=== PATIENT | female | born 1940 | race Caucasian/White ===

== ENCOUNTER 2016-03-24 11:16 | Emergency (ER) | payer OTHER ==
[~2016-03-24] VITALS: Ht 154.9 cm; Wt 72.7 kg
[~2016-03-24 11:16] MED LIST: ALENDRONATE SOD70 MG PO; ASCORBIC ACID500 M3 PO; CALTRATE 600600 MG PO; CENTRUM SILVER1 EAC3 PO; CHILDREN'S ASPI81 M1 PO; DONEPEZIL HCL10 MG PO; GLIMEPIRIDE1 MG PO; INDAPAMIDE1.25 MG PO; INDOCIN50 MG PO; KLOR-CON M1010 MEQ PO; LISINOPRIL10 MG PO; SIMVASTATIN40 MG PO
[2016-03-24] MEDS ORDERED: LORTAB 5-325 M1 EACH PO (15:18)
[2016-03-24 15:52] VITALS: BP 128/67
== END 2016-03-24 15:53 | disposition home or self-care (01) ==
LOC: EME 11:16
DX: S82.002A Unspecified fracture of left patella, initial encounter for closed fracture (principal); W01.0XXA Fall on same level from slipping, tripping and stumbling without subsequent striking against object, initial encounter; Z96.653 Presence of artificial knee joint, bilateral; Z88.0 Allergy status to penicillin
CPT/HCPCS: 73564; 93971; 99281; 99284

== ENCOUNTER 2016-04-07 07:43 | Emergency (ER) | payer OTHER ==
[~2016-04-07] VITALS: Ht 167.6 cm; Wt 65.8 kg
[~2016-04-07 07:43] MED LIST changes: +LORTAB 5-325 M1 EACH PO
[2016-04-07 08:45] LABS: HEMATOCRIT 31.4 % (36.0-46.0); MCH 27.7 PG (29.0-34.0); MCHC 32.2 G/DL (30.0-36.0); MEAN PLAT.VOLUME 8.9 uM^3 (9.5-12.4); PLATELET COUNT 635 K/uL (156-360); RBC DIS.WIDTH-CV 14.1 % (11.8-14.6); RED BLOOD COUNT 3.65 M/uL (3.80-5.20); WHITE BLOOD COUNT 8.6 K/uL (4.1-10.2)
[2016-04-07 08:56] LABS: CHLORIDE 103 mEq/L (99-109); POTASSIUM 3.6 mEq/L (3.7-5.4); SODIUM 139 mEq/L (136-147)
[2016-04-07 08:58] LABS: GLUCOSE 171 mg/dL (70-99)
[2016-04-07 08:59] LABS: ANION GAP 11 MEQ/L (2-14)
[2016-04-07 09:00] LABS: TOTAL BILIRUBIN 0.3 mg/dL (0.0-1.0)
[2016-04-07 09:02] LABS: ALKALINE PHOSPHATASE 81 IU/L (3-129); GFR ESTIMATE (CALCULATED) > 59 mL/min/
[2016-04-07 09:03] LABS: UREA NITROGEN (BUN) 6 mg/dL (9-23)
[2016-04-07 09:27] LABS: ADD MIUA? YES; BILIRUBIN NEGATIVE; BLOOD NEGATIVE; COLOR YELLOW ((YELLOW)); GLUCOSE (STRIP) NEGATIVE; KETONES 40; LEUKOCYTES TRACE; NITRITE NEGATIVE; PROTEIN (STRIP) TRACE; SPECIFIC GRAVITY 1.022 (1.000-1.030); UROBILINOGEN 0.2 MG/DL (0.2-1.0)
[2016-04-07 09:47] LABS: BACTERIA NONE SEEN; CASTS NONE SEEN /LPF; CRYSTALS PRESENT; EPITHELIAL CELLS RARE; MUCUS NONE SEEN; PATHOLOGICAL CAST NONE SEEN; RED BLOOD CELLS 0-5 /HPF (0-5); SMALL ROUND CELL NONE SEEN; UCUL ADDED? NO; YEAST-LIKE CELL NONE SEEN
[2016-04-07 10:14] LABS: AMORPHOUS URATES CRYSTALS 3+
[2016-04-07] MEDS ORDERED: OXAYDO5 MG PO (12:25)
[2016-04-07] MEDS ORDERED: CALTRATE PLUS1 EACH PO (12:27)
[2016-04-07] MEDS ORDERED: CIPRO500 MG PO (13:47)
[2016-04-07 14:36] VITALS: BP 117/65
== END 2016-04-07 14:36 | disposition home or self-care (01) ==
LOC: EME 07:43
PROVIDERS: Nurse Practitioner Family
DX: N39.0 Urinary tract infection, site not specified (principal); D64.9 Anemia, unspecified; F03.90 Unspecified dementia, unspecified severity, without behavioral disturbance, psychotic disturbance, mood disturbance, and anxiety; E11.9 Type 2 diabetes mellitus without complications; Z79.84 Long term (current) use of oral hypoglycemic drugs; Z79.4 Long term (current) use of insulin; E78.5 Hyperlipidemia, unspecified; I10 Essential (primary) hypertension; Z88.1 Allergy status to other antibiotic agents; Z88.0 Allergy status to penicillin; Z91.030 Bee allergy status
CPT/HCPCS: 70450; 74176; 80053; 81003; 85027; 99281; 99285; J0744; J7030

== ENCOUNTER 2016-04-15 15:46 | Inpatient (IN) | payer OTHER ==
[~2016-04-15] VITALS: Ht 154.9 cm; Wt 66.4 kg
[~2016-04-15 15:46] MED LIST changes: +CALTRATE PLUS1 EACH PO; +CIPRO500 MG PO; +OXAYDO5 MG PO
[2016-04-15 16:14] LABS: EOSINOPHIL (%) 1.7 % (0-5); EOSINOPHIL COUNT 0.2 K/uL (0-0.3); HEMATOCRIT 30.7 % (36.0-46.0); IMMATURE GRANULOCYTE (%) 0.6 % (0.0-0.7); IMMATURE GRANULOCYTE COUNT 0.7 K/uL; LYMPHOCYTE COUNT 1.7 K/uL (1.0-2.8); MCH 27.8 PG (29.0-34.0); MCHC 32.2 G/DL (30.0-36.0); MCV 86.2 FL (83-99); MEAN PLAT.VOLUME 9.5 uM^3 (9.5-12.4); MONOCYTE (%) 7.4 % (3-12); MONOCYTE COUNT 0.8 K/uL (0-0.8); NEUTROPHIL (%) 74.3 % (45-76); NEUTROPHIL COUNT 8.1 K/uL (1.8-6.4); PLATELET COUNT 467 K/uL (156-360); RBC DIS.WIDTH-CV 14.2 % (11.8-14.6); RBC DIS.WIDTH-SD 43.2 % (39-53); RED BLOOD COUNT 3.56 M/uL (3.80-5.20); WHITE BLOOD COUNT 10.9 K/uL (4.1-10.2)
[2016-04-15 16:32] LABS: INTER. NORMALIZED RATIO 1.2; PROTHROMBIN TIME 12.7 (9.2-11.2); PTT 23.3 (25-32)
[2016-04-15 16:34] LABS: CHLORIDE 102 mEq/L (99-109); POTASSIUM 3.4 mEq/L (3.7-5.4); SODIUM 139 mEq/L (136-147)
[2016-04-15 16:36] LABS: GLUCOSE 187 mg/dL (70-99)
[2016-04-15 16:37] LABS: ANION GAP 14 MEQ/L (2-14)
[2016-04-15 16:40] LABS: GFR ESTIMATE (CALCULATED) > 59 mL/min/; UREA NITROGEN (BUN) 7 mg/dL (9-23)
[2016-04-15] MEDS ORDERED: CHOLESTYRAMINE378 GM PO (16:41)
[2016-04-15] MEDS ORDERED: ASCORBIC ACID500 M3 PO (16:41)
[2016-04-15 19:33] LABS: HEMATOCRIT 26.7 % (36.0-46.0); MCH 28.3 PG (29.0-34.0); MCHC 32.6 G/DL (30.0-36.0); RBC DIS.WIDTH-CV 14.3 % (11.8-14.6); RBC DIS.WIDTH-SD 43.3 % (39-53); RED BLOOD COUNT 3.07 M/uL (3.80-5.20); WHITE BLOOD COUNT 13.9 K/uL (4.1-10.2)
[2016-04-15 20:33] LABS: ADD MIUA? YES; BILIRUBIN NEGATIVE; BLOOD NEGATIVE; GLUCOSE (STRIP) NEGATIVE; KETONES 15; LEUKOCYTES TRACE; NITRITE NEGATIVE; PROTEIN (STRIP) NEGATIVE; SPECIFIC GRAVITY 1.009 (1.000-1.030); UROBILINOGEN 0.2 MG/DL (0.2-1.0)
[2016-04-15 20:35] LABS: COLOR PALE YELLOW ((YELLOW))
[2016-04-15 21:05] LABS: MEAN PLAT.VOLUME 9.7 uM^3 (9.5-12.4); PLATELET COUNT 303 K/uL (156-360)
[2016-04-15 21:14] VITALS: BP 100/60
[2016-04-15 21:28] LABS: BACTERIA RARE; CASTS NONE SEEN /LPF; CRYSTALS NONE SEEN; EPITHELIAL CELLS 1+; MUCUS NONE SEEN; RED BLOOD CELLS 0-5 /HPF (0-5); UCUL ADDED? NO; WHITE BLOOD CELLS 0-5 /HPF (0-5)
[2016-04-15 21:34] VITALS: BP 112/52
[2016-04-15 23:00] VITALS: BP 114/60
[2016-04-16] VITALS (41 sets, daily range): BP systolic 79–138; BP diastolic 43–80
[2016-04-16 02:13] LABS: POINT-OF-CARE METER ID UU13113698
[2016-04-16 02:35] LABS: HEMATOCRIT 28.4 % (36.0-46.0); MCH 28.7 PG (29.0-34.0); MCHC 33.1 G/DL (30.0-36.0); MCV 86.6 FL (83-99); MEAN PLAT.VOLUME 10.1 uM^3 (9.5-12.4); PLATELET COUNT 387 K/uL (156-360); RBC DIS.WIDTH-SD 42.4 % (39-53); RED BLOOD COUNT 3.28 M/uL (3.80-5.20); WHITE BLOOD COUNT 12.3 K/uL (4.1-10.2)
[2016-04-16 08:23] LABS: HEMATOCRIT 22.4 % (36.0-46.0); MCV 84.2 FL (83-99)
[2016-04-16 08:29] LABS: HEMATOCRIT 22.3 % (36.0-46.0); MCH 29.3 PG (29.0-34.0); MCHC 34.5 G/DL (30.0-36.0); MCV 84.8 FL (83-99); RBC DIS.WIDTH-CV 14.1 % (11.8-14.6); RBC DIS.WIDTH-SD 42.5 % (39-53); RED BLOOD COUNT 2.63 M/uL (3.80-5.20); WHITE BLOOD COUNT 8.3 K/uL (4.1-10.2)
[2016-04-16 08:46] LABS: ALKALINE PHOSPHATASE 40 IU/L (3-129); ANION GAP 8 MEQ/L (2-14); CHLORIDE 111 MEQ/L (99-109); GFR ESTIMATE (CALCULATED) > 59 mL/min/; GLUCOSE 173 mg/dL (70-99); POTASSIUM 3.2 MEQ/L (3.7-5.4); SAMPLE HEMOLYSIS CHECK 0; SAMPLE ICTERIC CHECK 0; SAMPLE LIPEMIA CHECK 0; SODIUM 141 MEQ/L (136-147); TOTAL BILIRUBIN 1.3 MG/DL (0.0-1.0); UREA NITROGEN (BUN) 16 mg/dL (9-23)
[2016-04-16 08:48] LABS: MAGNESIUM 1.4 mg/dl (1.3-2.7)
[2016-04-16 09:39] LABS: MEAN PLAT.VOLUME 9.7 uM^3 (9.5-12.4)
[2016-04-16 09:44] LABS: PLATELET COUNT 209 K/uL (156-360)
[2016-04-16 12:59] LABS: BASE EXCESS 3.2 mEq/L (-3 to +3); BICARBONATE 26.8 mEq/L (22-26); CARBOXY HGB 1.8 % (0-5); COMMENTS - BLOOD GASES A+C+; DEVICE 840 PB; FI02 30 %; METHEMOGLOBIN 1.6 % (0-1.5); PCO2 36 mm Hg (35-45); PO2 130 mm Hg (80-100); SITE RR; pH 7.48 (7.35-7.45)
[2016-04-16 13:00] LABS: MODE TC; PEEP 5 CM/H20; TOTAL RESP RATE 21 resp/min
[2016-04-16 15:14] LABS: HEMATOCRIT 28.8 % (36.0-46.0); MCH 28.8 PG (29.0-34.0); MCV 84.7 FL (83-99); MEAN PLAT.VOLUME 10.1 uM^3 (9.5-12.4); PLATELET COUNT 183 K/uL (156-360); RBC DIS.WIDTH-CV 13.9 % (11.8-14.6); RBC DIS.WIDTH-SD 42.1 % (39-53); WHITE BLOOD COUNT 9.8 K/uL (4.1-10.2)
[2016-04-16 17:38] LABS: POINT-OF-CARE METER ID UU14162636
[2016-04-16 17:59] LABS: HEMATOCRIT 28.6 % (36.0-46.0); MCH 28.7 PG (29.0-34.0); MCHC 34.3 G/DL (30.0-36.0); MCV 83.9 FL (83-99); MEAN PLAT.VOLUME 10.1 uM^3 (9.5-12.4); PLATELET COUNT 183 K/uL (156-360); RBC DIS.WIDTH-CV 14.2 % (11.8-14.6); RBC DIS.WIDTH-SD 42.4 % (39-53); RED BLOOD COUNT 3.41 M/uL (3.80-5.20); WHITE BLOOD COUNT 9.2 K/uL (4.1-10.2)
[2016-04-17] VITALS (23 sets, daily range): BP systolic 53–154; BP diastolic 35–87
[2016-04-17 01:08] LABS: HEMATOCRIT 26.3 % (36.0-46.0); MCH 28.7 PG (29.0-34.0); MCHC 34.2 G/DL (30.0-36.0); MCV 83.8 FL (83-99); MEAN PLAT.VOLUME 9.7 uM^3 (9.5-12.4); PLATELET COUNT 171 K/uL (156-360); RBC DIS.WIDTH-CV 14.6 % (11.8-14.6); RBC DIS.WIDTH-SD 41.9 % (39-53); RED BLOOD COUNT 3.14 M/uL (3.80-5.20)
[2016-04-17 01:40] LABS: POINT-OF-CARE METER ID UU14162636
[2016-04-17 06:17] LABS: HEMATOCRIT 26.6 % (36.0-46.0); MCHC 34.6 G/DL (30.0-36.0); MCV 83.9 FL (83-99); MEAN PLAT.VOLUME 9.8 uM^3 (9.5-12.4); PLATELET COUNT 154 K/uL (156-360); RBC DIS.WIDTH-CV 14.9 % (11.8-14.6); RBC DIS.WIDTH-SD 45.1 % (39-53); RED BLOOD COUNT 3.17 M/uL (3.80-5.20); WHITE BLOOD COUNT 6.7 K/uL (4.1-10.2)
[2016-04-17 12:06] LABS: HEMATOCRIT 27.8 % (36.0-46.0); MCH 28.9 PG (29.0-34.0); MCHC 34.2 G/DL (30.0-36.0); MCV 84.5 FL (83-99); PLATELET COUNT 178 K/uL (156-360); RBC DIS.WIDTH-SD 45.5 % (39-53); RED BLOOD COUNT 3.29 M/uL (3.80-5.20)
[2016-04-17 17:56] LABS: POINT-OF-CARE METER ID UU13113748
[2016-04-17 19:18] LABS: HEMATOCRIT 23.2 % (36.0-46.0); MCH 28.8 PG (29.0-34.0); MCHC 34.1 G/DL (30.0-36.0); MCV 84.7 FL (83-99); MEAN PLAT.VOLUME 10.3 uM^3 (9.5-12.4); PLATELET COUNT 228 K/uL (156-360); RBC DIS.WIDTH-CV 14.9 % (11.8-14.6); RBC DIS.WIDTH-SD 45.4 % (39-53); RED BLOOD COUNT 2.74 M/uL (3.80-5.20); WHITE BLOOD COUNT 8.2 K/uL (4.1-10.2)
[2016-04-17 23:47] LABS: CARBOXY HGB 1.4 % (0-5); METHEMOGLOBIN 1.3 % (0-1.5)
[2016-04-17 23:48] LABS: BICARBONATE 14.8 mEq/L (22-26); DEVICE 840; FI02 100 %; MECHANICAL RATE 16 resp/min; MODE AC; PCO2 28 mm Hg (35-45); PEEP 5 CM/H20; PO2 500 mm Hg (80-100); SITE LR; TIDAL VOLUME 400 ML; TOTAL RESP RATE 38 resp/min; pH 7.33 (7.35-7.45)
[2016-04-17 23:51] LABS: HEMATOCRIT 17.7 % (36.0-46.0); MCH 29.9 PG (29.0-34.0); MCHC 33.3 G/DL (30.0-36.0); MEAN PLAT.VOLUME 10.2 uM^3 (9.5-12.4); PLATELET COUNT 228 K/uL (156-360); RBC DIS.WIDTH-CV 14.8 % (11.8-14.6); RBC DIS.WIDTH-SD 45.1 % (39-53); RED BLOOD COUNT 1.97 M/uL (3.80-5.20); WHITE BLOOD COUNT 12.9 K/uL (4.1-10.2)
[2016-04-17 23:52] LABS: MCV 89.7 FL (83-99)
[2016-04-18] VITALS (23 sets, daily range): BP systolic 115–146; BP diastolic 47–78
[2016-04-18 02:30] LABS: HEMATOCRIT 27.3 % (36.0-46.0); MCH 28.1 PG (29.0-34.0); MCHC 33.3 G/DL (30.0-36.0); RBC DIS.WIDTH-CV 14.9 % (11.8-14.6)
[2016-04-18 02:34] LABS: MCV 84.3 FL (83-99); RED BLOOD COUNT 3.24 M/uL (3.80-5.20); WHITE BLOOD COUNT 24.7 K/uL (4.1-10.2)
[2016-04-18 02:38] LABS: SODIUM 145 mEq/L (136-147)
[2016-04-18 02:40] LABS: MAGNESIUM 1.7 mg/dL (1.3-2.7)
[2016-04-18 02:41] LABS: ANION GAP 10 MEQ/L (2-14); INTER. NORMALIZED RATIO 1.4; PROTHROMBIN TIME 14.5 (9.2-11.2); PTT 23.6 (25-32)
[2016-04-18 02:42] LABS: TOTAL BILIRUBIN 1.8 mg/dL (0.0-1.0)
[2016-04-18 02:43] LABS: ALKALINE PHOSPHATASE 37 IU/L (3-129); CHLORIDE 116 mEq/L (99-109); GLUCOSE 347 mg/dL (70-99); POTASSIUM 3.9 mEq/L (3.7-5.4)
[2016-04-18 02:44] LABS: GFR ESTIMATE (CALCULATED) > 59 mL/min/; TOTAL BILIRUBIN 1.8 mg/dL (0.0-1.0)
[2016-04-18 02:45] LABS: UREA NITROGEN (BUN) 16 mg/dL (9-23)
[2016-04-18 02:46] LABS: ALKALINE PHOSPHATASE 38 IU/L (3-129)
[2016-04-18 02:48] LABS: DIRECT BILIRUBIN 0.7 mg/dL (0.0-0.3)
[2016-04-18 02:50] LABS: TROP-I INTERPRETATION NEGATIVE; TROPONIN-I 0.02 ng/mL (0.0-0.30)
[2016-04-18 03:26] LABS: MEAN PLAT.VOLUME 10.2 uM^3 (9.5-12.4); PLATELET COUNT 93 K/uL (156-360)
[2016-04-18 06:15] LABS: POINT-OF-CARE METER ID UU13113731
[2016-04-18 08:18] LABS: INTER. NORMALIZED RATIO 1.2; PTT 24.3 (25-32)
[2016-04-18 08:23] LABS: HEMATOCRIT 25.5 % (36.0-46.0); MCH 28.9 PG (29.0-34.0); MCHC 34.9 G/DL (30.0-36.0); MCV 82.8 FL (83-99); RBC DIS.WIDTH-CV 15.3 % (11.8-14.6); RBC DIS.WIDTH-SD 45.7 % (39-53); RED BLOOD COUNT 3.08 M/uL (3.80-5.20)
[2016-04-18 08:24] LABS: WHITE BLOOD COUNT 15.5 K/uL (4.1-10.2)
[2016-04-18 08:37] LABS: ANION GAP 8 MEQ/L (2-14); CHLORIDE 116 MEQ/L (99-109); GFR ESTIMATE (CALCULATED) > 59 mL/min/; GLUCOSE 289 mg/dL (70-99); POTASSIUM 3.3 MEQ/L (3.7-5.4); SAMPLE HEMOLYSIS CHECK 0; SAMPLE ICTERIC CHECK 0; SAMPLE LIPEMIA CHECK 0; SODIUM 146 MEQ/L (136-147); UREA NITROGEN (BUN) 16 mg/dL (9-23)
[2016-04-18 09:09] LABS: MEAN PLAT.VOLUME 10.7 uM^3 (9.5-12.4)
[2016-04-18 09:28] LABS: PLATELET COUNT 65 K/uL (156-360)
[2016-04-18 11:12] LABS: GAMMA-GT 12 IU/L (4-73); PREALBUMIN 13.8 mg/dL (10-40); TRIGLYCERIDES 100 MG/DL (Normal: <150)
[2016-04-18 12:02] LABS: POINT-OF-CARE METER ID UU13113731
[2016-04-18 17:49] LABS: POINT-OF-CARE METER ID UU14162636
[2016-04-19] VITALS (33 sets, daily range): BP systolic 94–130; BP diastolic 44–71
[2016-04-19 06:43] LABS: EOSINOPHIL (%) 1.7 % (0-5); EOSINOPHIL COUNT 0.1 K/uL (0-0.3); HEMATOCRIT 20.4 % (36.0-46.0); IMMATURE GRANULOCYTE (%) 0.5 % (0.0-0.7); LYMPHOCYTE COUNT 1.8 K/uL (1.0-2.8); MCH 29.3 PG (29.0-34.0); MCHC 34.3 G/DL (30.0-36.0); MCV 85.4 FL (83-99); MEAN PLAT.VOLUME 10.8 uM^3 (9.5-12.4); MONOCYTE (%) 7.3 % (3-12); MONOCYTE COUNT 0.6 K/uL (0-0.8); NEUTROPHIL (%) 69.1 % (45-76); NEUTROPHIL COUNT 5.8 K/uL (1.8-6.4); PLATELET COUNT 70 K/uL (156-360); RBC DIS.WIDTH-CV 16.1 % (11.8-14.6); RBC DIS.WIDTH-SD 49.3 % (39-53); RED BLOOD COUNT 2.39 M/uL (3.80-5.20); WHITE BLOOD COUNT 8.4 K/uL (4.1-10.2)
[2016-04-19 06:46] LABS: ALKALINE PHOSPHATASE 33 IU/L (3-129); ANION GAP 4 MEQ/L (2-14); CHLORIDE 113 MEQ/L (99-109); DIRECT BILIRUBIN 0.1 mg/dL (0.0-0.3); GAMMA-GT 9 IU/L (4-73); GFR ESTIMATE (CALCULATED) > 59 mL/min/; GLUCOSE 188 mg/dL (70-99); MAGNESIUM 1.6 mg/dl (1.3-2.7); POTASSIUM 3.5 MEQ/L (3.7-5.4); PREALBUMIN 11.6 mg/dL (10-40); SAMPLE HEMOLYSIS CHECK 0; SAMPLE ICTERIC CHECK 0; SAMPLE LIPEMIA CHECK 0; SODIUM 143 MEQ/L (136-147); UREA NITROGEN (BUN) 14 mg/dL (9-23)
[2016-04-19 06:47] LABS: TOTAL BILIRUBIN 0.5 MG/DL (0.0-1.0)
[2016-04-20] VITALS (16 sets, daily range): BP systolic 102–134; BP diastolic 52–79
[2016-04-20 05:44] LABS: POINT-OF-CARE METER ID UU13113748
[2016-04-20 06:58] LABS: ANION GAP 4 MEQ/L (2-14); CHLORIDE 109 MEQ/L (99-109); GFR ESTIMATE (CALCULATED) > 59 mL/min/; GLUCOSE 131 mg/dL (70-99); MAGNESIUM 1.7 mg/dl (1.3-2.7); SAMPLE HEMOLYSIS CHECK 0; SAMPLE ICTERIC CHECK 0; SAMPLE LIPEMIA CHECK 0; SODIUM 139 MEQ/L (136-147); UREA NITROGEN (BUN) 15 mg/dL (9-23)
[2016-04-20 07:08] LABS: POTASSIUM 4.5 MEQ/L (3.7-5.4)
[2016-04-20 07:54] LABS: HEMATOCRIT 30.4 % (36.0-46.0); MCH 29.5 PG (29.0-34.0); MCHC 33.6 G/DL (30.0-36.0); MCV 87.9 FL (83-99); MEAN PLAT.VOLUME 11.3 uM^3 (9.5-12.4); PLATELET COUNT 86 K/uL (156-360); RBC DIS.WIDTH-SD 49.9 % (39-53); WHITE BLOOD COUNT 10.1 K/uL (4.1-10.2)
[2016-04-20 07:58] LABS: RED BLOOD COUNT 3.46 M/uL (3.80-5.20)
[2016-04-20 12:17] LABS: POINT-OF-CARE METER ID UU13113803
[2016-04-20 12:42] LABS: HEMATOCRIT 32.8 % (36.0-46.0); MCV 87.2 FL (83-99)
[2016-04-20 18:27] LABS: POINT-OF-CARE METER ID UU14174216
[2016-04-20 19:55] LABS: HEMATOCRIT 32.6 % (36.0-46.0); MCV 87.2 FL (83-99)
[2016-04-20 23:58] LABS: POINT-OF-CARE METER ID UU14174216; POINT-OF-CARE USER ID 608261316
[2016-04-21 02:25] LABS: BILIRUBIN NEGATIVE; BLOOD NEGATIVE; COLOR YELLOW ((YELLOW)); GLUCOSE (STRIP) NEGATIVE; KETONES NEGATIVE; LEUKOCYTES TRACE; NITRITE NEGATIVE; PROTEIN (STRIP) NEGATIVE; SPECIFIC GRAVITY 1.013 (1.000-1.030); UROBILINOGEN 0.2 MG/DL (0.2-1.0)
[2016-04-21 03:44] VITALS: BP 122/61
[2016-04-21 04:25] LABS: HEMATOCRIT 32.7 % (36.0-46.0); MCV 87.9 FL (83-99)
[2016-04-21 04:28] LABS: HEMATOCRIT 32.8 % (36.0-46.0); MCH 29.2 PG (29.0-34.0); MCHC 33.2 G/DL (30.0-36.0); MCV 87.9 FL (83-99); RBC DIS.WIDTH-CV 16.1 % (11.8-14.6); RBC DIS.WIDTH-SD 48.5 % (39-53); RED BLOOD COUNT 3.73 M/uL (3.80-5.20); WHITE BLOOD COUNT 10.4 K/uL (4.1-10.2)
[2016-04-21 04:30] LABS: EOSINOPHIL (%) 2.1 % (0-5); EOSINOPHIL COUNT 0.2 K/uL (0-0.3); IMMATURE GRANULOCYTE (%) 0.8 % (0.0-0.7); IMMATURE GRANULOCYTE COUNT 0.8 K/uL; LYMPHOCYTE COUNT 1.8 K/uL (1.0-2.8); MEAN PLAT.VOLUME 10.4 uM^3 (9.5-12.4); MONOCYTE COUNT 0.9 K/uL (0-0.8); NEUTROPHIL (%) 70.2 % (45-76); NEUTROPHIL COUNT 7.3 K/uL (1.8-6.4)
[2016-04-21 04:32] LABS: PLATELET COUNT 113 K/uL (156-360)
[2016-04-21 04:34] LABS: POTASSIUM 3.7 mEq/L (3.7-5.4); SODIUM 139 mEq/L (136-147)
[2016-04-21 04:36] LABS: GLUCOSE 119 mg/dL (70-99); POTASSIUM 3.7 mEq/L (3.7-5.4); SODIUM 139 mEq/L (136-147)
[2016-04-21 04:37] LABS: ANION GAP 7 MEQ/L (2-14); MAGNESIUM 1.7 mg/dL (1.3-2.7)
[2016-04-21 04:38] LABS: GLUCOSE 118 mg/dL (70-99)
[2016-04-21 04:39] LABS: ANION GAP 7 MEQ/L (2-14)
[2016-04-21 04:40] LABS: ALKALINE PHOSPHATASE 64 IU/L (3-129); GFR ESTIMATE (CALCULATED) > 59 mL/min/
[2016-04-21 04:41] LABS: UREA NITROGEN (BUN) 14 mg/dL (9-23)
[2016-04-21 04:42] LABS: GFR ESTIMATE (CALCULATED) > 59 mL/min/
[2016-04-21 04:43] LABS: UREA NITROGEN (BUN) 14 mg/dL (9-23)
[2016-04-21 04:46] LABS: CHLORIDE 104 mEq/L (99-109); TOTAL BILIRUBIN 0.6 mg/dL (0.0-1.0)
[2016-04-21 08:00] VITALS: BP 130/68
[2016-04-21 09:58] VITALS: BP 130/68
[2016-04-21 11:46] VITALS: BP 160/57
[2016-04-21 12:12] LABS: POINT-OF-CARE METER ID UU13113781; POINT-OF-CARE USER ID NUTSLF44
[2016-04-21 14:41] LABS: ADD MIUA? ND
[2016-04-21 19:00] VITALS: BP 114/61
[2016-04-21 19:35] LABS: POINT-OF-CARE METER ID UU13113781; POINT-OF-CARE USER ID NUTSLF44
[2016-04-21 21:16] LABS: POINT-OF-CARE METER ID UU13113698
[2016-04-21 23:45] VITALS: BP 104/55
[2016-04-22 04:33] VITALS: BP 105/57
[2016-04-22 06:12] LABS: POINT-OF-CARE METER ID UU13113781
[2016-04-22 06:54] LABS: HEMATOCRIT 29.2 % (36.0-46.0); MCHC 33.2 G/DL (30.0-36.0); MCV 90.4 FL (83-99); MEAN PLAT.VOLUME 11.2 uM^3 (9.5-12.4); PLATELET COUNT 129 K/uL (156-360); RBC DIS.WIDTH-CV 16.7 % (11.8-14.6); RBC DIS.WIDTH-SD 53.9 % (39-53); RED BLOOD COUNT 3.23 M/uL (3.80-5.20); WHITE BLOOD COUNT 7.5 K/uL (4.1-10.2)
[2016-04-22 07:22] LABS: EOSINOPHIL (%) 2.7 % (0-5); EOSINOPHIL COUNT 0.2 K/uL (0-0.3); IMMATURE GRANULOCYTE (%) 1.6 % (0.0-0.7); IMMATURE GRANULOCYTE COUNT 0.1 K/uL; LYMPHOCYTE COUNT 1.4 K/uL (1.0-2.8); MONOCYTE (%) 11.7 % (3-12); MONOCYTE COUNT 0.9 K/uL (0-0.8); NEUTROPHIL (%) 64.9 % (45-76); NEUTROPHIL COUNT 4.9 K/uL (1.8-6.4)
[2016-04-22 07:26] LABS: ANION GAP 6 MEQ/L (2-14); CHLORIDE 106 MEQ/L (99-109); GFR ESTIMATE (CALCULATED) > 59 mL/min/; GLUCOSE 157 mg/dL (70-99); MAGNESIUM 1.9 mg/dl (1.3-2.7); SAMPLE HEMOLYSIS CHECK 0; SAMPLE ICTERIC CHECK 0; SAMPLE LIPEMIA CHECK 0; SODIUM 141 MEQ/L (136-147); TOTAL BILIRUBIN 0.4 MG/DL (0.0-1.0); UREA NITROGEN (BUN) 14 mg/dL (9-23)
[2016-04-22 07:30] LABS: ALKALINE PHOSPHATASE 65 IU/L (3-129)
[2016-04-22 07:53] VITALS: BP 104/51
[2016-04-22 11:53] LABS: POINT-OF-CARE METER ID UU13113781
[2016-04-22 12:00] VITALS: BP 105/55
[2016-04-22 14:46] LABS: HEMATOCRIT 33.2 % (36.0-46.0); MCH 29.8 PG (29.0-34.0); MCHC 32.8 G/DL (30.0-36.0); MCV 90.7 FL (83-99); MEAN PLAT.VOLUME 10.9 uM^3 (9.5-12.4); PLATELET COUNT 145 K/uL (156-360); RBC DIS.WIDTH-SD 55.1 % (39-53); RED BLOOD COUNT 3.66 M/uL (3.80-5.20); WHITE BLOOD COUNT 8.5 K/uL (4.1-10.2)
[2016-04-22 16:22] LABS: EOSINOPHIL (%) 1.8 % (0-5); EOSINOPHIL COUNT 0.2 K/uL (0-0.3); HEMATOLOGY COMMENT 1 SMEAR COMPATIBLE; IMMATURE GRANULOCYTE (%) 1.7 % (0.0-0.7); IMMATURE GRANULOCYTE COUNT 0.1 K/uL; LYMPHOCYTE COUNT 1.2 K/uL (1.0-2.8); MONOCYTE COUNT 0.9 K/uL (0-0.8); NEUTROPHIL (%) 71.8 % (45-76); NEUTROPHIL COUNT 6.1 K/uL (1.8-6.4); USER ID NJV
[2016-04-22 16:50] LABS: POINT-OF-CARE METER ID UU13113781; POINT-OF-CARE USER ID ENVKC36
[2016-04-22 19:00] VITALS: BP 100/56
[2016-04-22 19:07] VITALS: BP 95/55
[2016-04-23] VITALS: BP 119/58
[2016-04-23 03:39] VITALS: BP 118/64
[2016-04-23 07:04] LABS: HEMATOCRIT 30.7 % (36.0-46.0); MCH 29.5 PG (29.0-34.0); MCHC 32.6 G/DL (30.0-36.0); MCV 90.6 FL (83-99); MEAN PLAT.VOLUME 11.3 uM^3 (9.5-12.4); PLATELET COUNT 148 K/uL (156-360); RBC DIS.WIDTH-SD 55.9 % (39-53); RED BLOOD COUNT 3.39 M/uL (3.80-5.20); WHITE BLOOD COUNT 6.6 K/uL (4.1-10.2)
[2016-04-23 07:07] LABS: EOSINOPHIL (%) 2.9 % (0-5); EOSINOPHIL COUNT 0.2 K/uL (0-0.3); IMMATURE GRANULOCYTE (%) 1.8 % (0.0-0.7); IMMATURE GRANULOCYTE COUNT 0.1 K/uL; LYMPHOCYTE COUNT 1.3 K/uL (1.0-2.8); MONOCYTE (%) 12.4 % (3-12); MONOCYTE COUNT 0.8 K/uL (0-0.8); NEUTROPHIL (%) 63.8 % (45-76); NEUTROPHIL COUNT 4.2 K/uL (1.8-6.4)
[2016-04-23 07:26] LABS: ANION GAP 7 MEQ/L (2-14); CHLORIDE 107 MEQ/L (99-109); GFR ESTIMATE (CALCULATED) > 59 mL/min/; GLUCOSE 192 mg/dL (70-99); MAGNESIUM 1.9 mg/dl (1.3-2.7); POTASSIUM 4.1 MEQ/L (3.7-5.4); SAMPLE HEMOLYSIS CHECK 0; SAMPLE ICTERIC CHECK 0; SAMPLE LIPEMIA CHECK 0; SODIUM 139 MEQ/L (136-147); UREA NITROGEN (BUN) 15 mg/dL (9-23)
[2016-04-23 07:54] VITALS: BP 98/51
[2016-04-23 11:53] VITALS: BP 107/61
[2016-04-23 16:00] VITALS: BP 107/59
[2016-04-23 16:05] LABS: C DIFF TOXIN NEGATIVE (NEGATIVE)
[2016-04-23 16:11] LABS: PROBE CHECK PASS; SPECIMEN PROCESSING CONTROL PASS
[2016-04-23 19:30] VITALS: BP 110/61
[2016-04-24 00:02] VITALS: BP 137/69
[2016-04-24 03:42] VITALS: BP 121/65
[2016-04-24 06:47] LABS: ANION GAP 6 MEQ/L (2-14); CHLORIDE 108 MEQ/L (99-109); GFR ESTIMATE (CALCULATED) > 59 mL/min/; GLUCOSE 143 mg/dL (70-99); MAGNESIUM 1.8 mg/dl (1.3-2.7); POTASSIUM 4.1 MEQ/L (3.7-5.4); SAMPLE HEMOLYSIS CHECK 0; SAMPLE ICTERIC CHECK 0; SAMPLE LIPEMIA CHECK 0; SODIUM 139 MEQ/L (136-147); UREA NITROGEN (BUN) 11 mg/dL (9-23)
[2016-04-24 08:33] VITALS: BP 120/67
[2016-04-24 11:12] VITALS: BP 109/62
[2016-04-24 15:29] VITALS: BP 102/59
[2016-04-24 20:00] VITALS: BP 116/54
[2016-04-25] VITALS (7 sets, daily range): BP systolic 105–130; BP diastolic 59–72
[2016-04-25 05:58] LABS: HEMATOCRIT 31.7 % (36.0-46.0); MCH 29.7 PG (29.0-34.0); MCHC 32.8 G/DL (30.0-36.0); MCV 90.6 FL (83-99); RBC DIS.WIDTH-CV 16.3 % (11.8-14.6); RBC DIS.WIDTH-SD 53.9 % (39-53); WHITE BLOOD COUNT 5.9 K/uL (4.1-10.2)
[2016-04-25 06:13] LABS: MEAN PLAT.VOLUME 10.8 uM^3 (9.5-12.4); PLATELET COUNT 196 K/uL (156-360)
[2016-04-25 06:20] LABS: ANION GAP 6 MEQ/L (2-14); CHLORIDE 107 MEQ/L (99-109); GFR ESTIMATE (CALCULATED) > 59 mL/min/; GLUCOSE 159 mg/dL (70-99); MAGNESIUM 1.8 mg/dl (1.3-2.7); POTASSIUM 3.7 MEQ/L (3.7-5.4); SAMPLE HEMOLYSIS CHECK 0; SAMPLE ICTERIC CHECK 0; SAMPLE LIPEMIA CHECK 0; SODIUM 140 MEQ/L (136-147); UREA NITROGEN (BUN) 11 mg/dL (9-23)
[2016-04-26 04:06] VITALS: BP 119/67; BP 199/67
[2016-04-26 06:12] LABS: HEMATOCRIT 31.9 % (36.0-46.0); MCH 29.4 PG (29.0-34.0); MCHC 32.9 G/DL (30.0-36.0); MCV 89.4 FL (83-99); MEAN PLAT.VOLUME 10.6 uM^3 (9.5-12.4); PLATELET COUNT 218 K/uL (156-360); RBC DIS.WIDTH-CV 16.3 % (11.8-14.6); RBC DIS.WIDTH-SD 53.8 % (39-53); RED BLOOD COUNT 3.57 M/uL (3.80-5.20)
[2016-04-26 06:25] LABS: EOSINOPHIL COUNT 0.1 K/uL (0-0.3); IMMATURE GRANULOCYTE (%) 0.7 % (0.0-0.7); LYMPHOCYTE COUNT 1.1 K/uL (1.0-2.8); MONOCYTE (%) 11.1 % (3-12); MONOCYTE COUNT 0.7 K/uL (0-0.8); NEUTROPHIL (%) 67.2 % (45-76)
[2016-04-26 06:41] LABS: ALKALINE PHOSPHATASE 74 IU/L (3-129); ANION GAP 8 MEQ/L (2-14); CHLORIDE 105 MEQ/L (99-109); GAMMA-GT 38 IU/L (4-73); GFR ESTIMATE (CALCULATED) > 59 mL/min/; GLUCOSE 147 mg/dL (70-99); MAGNESIUM 1.7 mg/dl (1.3-2.7); POTASSIUM 3.5 MEQ/L (3.7-5.4); PREALBUMIN 22.7 mg/dL (10-40); SAMPLE HEMOLYSIS CHECK 0; SAMPLE ICTERIC CHECK 0; SAMPLE LIPEMIA CHECK 0; SODIUM 139 MEQ/L (136-147); TRIGLYCERIDES 101 MG/DL (Normal: <150); UREA NITROGEN (BUN) 9 mg/dL (9-23)
[2016-04-26 06:43] LABS: TOTAL BILIRUBIN 0.5 MG/DL (0.0-1.0)
[2016-04-26 07:30] VITALS: BP 122/62
[2016-04-26 11:14] VITALS: BP 118/67
[2016-04-26] MEDS ORDERED: PANTOPRAZOLE SO40 MG PO (13:15)
[2016-04-26 16:27] VITALS: BP 117/65
== END 2016-04-26 16:49 | DRG 326 ==
LOC: EME 15:46 → EDOF 18:50 → 4WEST 18:50 → 4EAST 18:50 → 4WEST 04-16 02:02 → 4EAST 04-20 16:34 → 5SOUTH 04-22 18:20
PROVIDERS: Emergency Medicine; Hospitalist; Internal Medicine; Internal Medicine Critical Care Medicine; Internal Medicine Gastroenterology; Internal Medicine Nephrology; Internal Medicine Pulmonary Disease; Nurse Practitioner Adult Health; Surgery
PROC: 30233N1 Transfusion of Nonautologous Red Blood Cells into Peripheral Vein, Percutaneous Approach (ICD-10-PCS; 2016-04-15)
PROC: 30233K1 Transfusion of Nonautologous Frozen Plasma into Peripheral Vein, Percutaneous Approach (ICD-10-PCS; principal; 2016-04-16)
PROC: 0W3P8ZZ Control Bleeding in Gastrointestinal Tract, Via Natural or Artificial Opening Endoscopic (ICD-10-PCS; principal; 2016-04-16)
PROC: 3E0G8GC Introduction of Other Therapeutic Substance into Upper GI, Via Natural or Artificial Opening Endoscopic (ICD-10-PCS; principal; 2016-04-16)
PROC: 3E0G8GC Introduction of Other Therapeutic Substance into Upper GI, Via Natural or Artificial Opening Endoscopic (ICD-10-PCS; 2016-04-17)
PROC: 0W3P8ZZ Control Bleeding in Gastrointestinal Tract, Via Natural or Artificial Opening Endoscopic (ICD-10-PCS; 2016-04-17)
PROC: 0BH17EZ Insertion of Endotracheal Airway into Trachea, Via Natural or Artificial Opening (ICD-10-PCS; 2016-04-17)
PROC: 5A1945Z Respiratory Ventilation, 24-96 Consecutive Hours (ICD-10-PCS; 2016-04-17)
PROC: 05HN33Z Insertion of Infusion Device into Left Internal Jugular Vein, Percutaneous Approach (ICD-10-PCS; 2016-04-17)
PROC: 04L Lower Arteries, Occlusion (ICD-10-PCS; 2016-04-18)
PROC: 0DQ90ZZ Repair Duodenum, Open Approach (ICD-10-PCS; 2016-04-18)
PROC: 0FQ Hepatobiliary System and Pancreas, Repair (ICD-10-PCS; 2016-04-18)
PROC: 3E0436Z Introduction of Nutritional Substance into Central Vein, Percutaneous Approach (ICD-10-PCS; 2016-04-18)
PROC: 06H03DZ Insertion of Intraluminal Device into Inferior Vena Cava, Percutaneous Approach (ICD-10-PCS; 2016-04-19)
DX: K26.6 Chronic or unspecified duodenal ulcer with both hemorrhage and perforation (principal); R57.8 Other shock; I77.2 Rupture of artery; K82.2 Perforation of gallbladder; D62 Acute posthemorrhagic anemia; J96.00 Acute respiratory failure, unspecified whether with hypoxia or hypercapnia; I82.442 Acute embolism and thrombosis of left tibial vein; S82.002A Unspecified fracture of left patella, initial encounter for closed fracture; W18.39XA Other fall on same level, initial encounter; K29.81 Duodenitis with bleeding; I10 Essential (primary) hypertension; E11.9 Type 2 diabetes mellitus without complications; E78.5 Hyperlipidemia, unspecified; R55 Syncope and collapse; G30.9 Alzheimer's disease, unspecified; F02.80 Dementia in other diseases classified elsewhere, unspecified severity, without behavioral disturbance, psychotic disturbance, mood disturbance, and anxiety; K92.1 Melena; I95.9 Hypotension, unspecified; Z96.653 Presence of artificial knee joint, bilateral; Z79.84 Long term (current) use of oral hypoglycemic drugs
CPT/HCPCS: 36600; 71010; 73560; 80048; 80048 91; 80053; 80076; 81003; 82310; 82803; 82948; 82977; 83605; 83735; 84100; 84134; 84478; 84484; 84630 90; 85014; 85018; 85025; 85025 91; 85027; 85384; 85610; 85730; 86850; 86900; 86901; 86920; 87070; 87086; 87205; 87493; 87641; 93005; 93970; 94002; 94690; 94760; 97530 GO; 97530 GP; 99281; 99285; C1769; C9113; J0330; J1335; J1630; J1644; J1815; J2250; J2405; J2704; J3010; J3475; J3480; J7030; J7050; P9016; P9017; P9045; S0030

== ENCOUNTER 2017-09-26 22:47 | Inpatient (IN) | payer OTHER ==
[~2017-09-26] VITALS: Ht 154.9 cm; Wt 68.0 kg
[~2017-09-26 22:47] MED LIST changes: +B-125000 MC1 SL; +CHOLESTYRAMINE378 GM PO; +COLACE100 MG PO; +METFORMIN HCL500 M4 PO; +PANTOPRAZOLE SO40 MG PO; +PROTONIX40 MG PO; +ULTRAM50 MG PO; +VITAMIN C1000 MG PO
[2017-09-27 07:43] VITALS: BP 145/670
[2017-09-27 14:10] VITALS: BP 138/71
[2017-09-27 15:57] VITALS: BP 131/61
[2017-09-27 20:17] VITALS: BP 131/59
[2017-09-28 00:18] VITALS: BP 118/59
[2017-09-28 04:15] VITALS: BP 135/64
[2017-09-28 06:28] LABS: HEMATOCRIT 32.4 % (36.0-46.0); HEMOGLOBIN 10.5 G/DL (11.9-15.5)
[2017-09-28 11:30] VITALS: BP 115/56
== END 2017-09-28 12:00 | disposition home or self-care (01) | DRG 483 ==
LOC: ENRESERV 22:47 → 2SOUTH 09-27 04:05 → 3WEST 09-27 13:28 → 2SOUTH 09-27 16:11 → 3WEST 09-28 12:00
PROVIDERS: Orthopaedic Surgery
PROC: 0RRK00Z Replacement of Left Shoulder Joint with Reverse Ball and Socket Synthetic Substitute, Open Approach (ICD-10-PCS; principal; 2017-09-27)
DX: M19.012 Primary osteoarthritis, left shoulder (principal); E11.9 Type 2 diabetes mellitus without complications; E78.5 Hyperlipidemia, unspecified; I10 Essential (primary) hypertension; K21.9 Gastro-esophageal reflux disease without esophagitis; M75.102 Unspecified rotator cuff tear or rupture of left shoulder, not specified as traumatic; R00.1 Bradycardia, unspecified; E78.00 Pure hypercholesterolemia, unspecified; M81.0 Age-related osteoporosis without current pathological fracture; E53.8 Deficiency of other specified B group vitamins; K59.01 Slow transit constipation; Z88.0 Allergy status to penicillin; Z88.1 Allergy status to other antibiotic agents; Z86.718 Personal history of other venous thrombosis and embolism
CPT/HCPCS: 82948; 85014; 85018; C1713; J0131; J0171; J1100; J1885; J2405; J2795; J3010; J7030; J7050